=== PATIENT | female | born 1990 | race Caucasian/White ===

== ENCOUNTER 2019-08-06 20:23 | Emergency (ER) | payer OTHER ==
[~2019-08-06] VITALS: Ht 167.6 cm; Wt 75.6 kg
--- NOTE | 2019-08-06 20:39 | NUR ---
Pt presents to ed c/o sobx5 hours today and chest "tightness"x2 weeks. Denies any pertinent cardiac hx. States hx of anxiety and feels like sob is the same. States cough and sore throatx2 weeks. -n/v. Unknown fevers at home. Monitoring applied. Pt mildly tachycardic. Pa at bedside for assessment. Awaiting orders.
[2019-08-06] MEDS ORDERED: ASPIRIN 81 MG TABLET CHEW ONE (20:44)
--- NOTE | 2019-08-06 20:46 | NUR ---
Pt offered ativan. Refused at this time. Will reassess.
[2019-08-06] MEDS ORDERED: LORazepam 0.5MG TABLET PO ONE (21:00)
[2019-08-06] MEDS ORDERED: ASPIRIN 81 MG TABLET CHEW PO ONE (21:00)
[2019-08-06 21:02] LABS: BASOPHILS # (AUTO) 0.05 x10^3/uL (0-0.1); BASOPHILS % (AUTO) 1 % (0-1); EOSINOPHILS # (AUTO) 0.21 x10^3/uL (0-0.4); EOSINOPHILS % (AUTO) 3 % (1-7); LYMPHOCYTES # (AUTO) 3.47 x10^3/uL (1-3.4); LYMPHOCYTES % (AUTO) 44 % (22-44); MD NO; MEAN CORPUSCULAR VOLUME 87.8 fL (80-100); MEAN PLATELET VOLUME 6.9 fL (7.4-10.4); MONOCYTES % (AUTO) 9 % (2-9); NEUTROPHILS # (AUTO) 3.55 x10^3/uL (1.8-6.8); NEUTROPHILS % (AUTO) 45 % (42-75); PLATELET COUNT 439 x10^3/uL (130-400); RED CELL DISTRIBUTION WIDTH 12.4 % (9.6-15.2)
[2019-08-06 21:15] LABS: ALANINE AMINOTRANSFERASE 25 U/L (12-78); ALBUMIN 4.4 g/dL (3.4-5.0); ANION GAP 6 mmol/L (5-15); CALCIUM 9.2 mg/dL (8.5-10.1); CHLORIDE 109 mmol/L (98-107); CREATININE 0.86 mg/dL (0.55-1.02)
[2019-08-06 21:20] LABS: ALKALINE PHOSPHATASE 55 U/L (45-117); BILIRUBIN,TOTAL 0.4 mg/dL (0.2-1.0); TROPONIN I < 0.015 ng/mL (0.000-0.045)
[2019-08-06 21:44] VITALS: BP 102/61
--- NOTE | 2019-08-06 21:44 | NUR ---
Pt still refusing ativan.
[2019-08-06 21:45] LABS: FREE T4 (FREE THYROXINE) 1.05 ng/dL (0.76-1.46)
== END 2019-08-06 22:06 | disposition home or self-care (01) ==
LOC: ED 20:49
DX: R07.89 Other chest pain (principal); R06.02 Shortness of breath
CPT/HCPCS: 36415; 71046; 80053; 84439; 84443; 84484; 84703; 85025; 93005; 99284